=== PATIENT | male | born 1980 | race Caucasian/White ===

== ENCOUNTER 2018-05-12 23:02 | Observation (INO) ==
[2018-05-12] MEDS ORDERED: MORPHINE 4 MG/1 ML VIAL IV STA ×2 (23:24→23:57)
[2018-05-12] MEDS ORDERED: ASPIRIN 325 MG TABLET PO STA (23:24)
[2018-05-12] MEDS ORDERED: ONDANSETRON 4 MG/2 ML VIAL IV STA (23:24)
[2018-05-12] MEDS ORDERED: METOPROLOL TARTRATE 5 MG/5 ML VIAL IV STA (23:24)
[2018-05-12] MEDS ORDERED: ENOXAPARIN 100 MG/ML SYRINGE SUBCUT STA (23:24)
[2018-05-12 23:35] LABS: Basophils # 0.1 10*3/uL (0.0-0.2); Basophils % 1.1 % (0.0-0.8); Eosinophils # 0.2 10*3/uL (0.0-0.87); Hemoglobin 12.7 GM/DL (14.0-18.0); Immature Granulocytes % 0.3 %; Immature Granulocytes Absolute 0.02 #; Lymphocytes # 1.4 10*3/uL (1.4-4.0); Lymphocytes % 19.6 % (21.2-54.2); Mean Corpuscular HGB Conc 33.4 GM/DL (32-36); Mean Corpuscular Hemoglobin 31 PG (27-34); Mean Corpuscular Volume 93.6 FL (87-102); Monocytes # 0.6 10*3/uL (0.11-0.8); Monocytes % 8.3 % (1.7-12.7); Neutrophils % 67.7 % (38.7-73.9); Platelet Count 227 T/CUMM (130-400); Red Blood Count 4.06 MC/CUMM (3.8-5.5); Red Cell Distribution Width 15.8 % (9.3-17.3); White Blood Count 7.4 T/CUMM (4-12)
[2018-05-12 23:42] LABS: PT Patient Result 10.1 SECS
[2018-05-12 23:45] LABS: Alanine Aminotransferase 20 U/L (16-61); Albumin 3.8 G/DL (3.4-5.0); Alkaline Phosphatase 39 U/L (45-117); Aspartate Amino Transferase 22 U/L (0-37); Bilirubin,Total < 0.39 MG/DL (0.2-1.0); Blood Urea Nitrogen 11 MG/DL (7-18); Calcium 8.9 MG/DL (8.5-10.1); Glucose 89 MG/DL (74-106); Osmolality,Calculated 272.7 MOS/KG (273-304); Potassium 3.2 MMOL/L (3.5-5.1); Sodium 138 MMOL/L (136-145); Total Protein 7.2 G/DL (6.4-8.3)
[2018-05-12] MEDS: NITROGLYCERIN SL 0.4 MG TABLET SL PRN (23:53)
[2018-05-13] MEDS: NITROGLYCERIN SL 0.4 MG TABLET SL PRN ×4 (00:10→14:55)
[2018-05-13] MEDS ORDERED: MAGNESIUM SULF RIDER 2 GM in PREMIX 1 EACH IV PRN (01:19)
[2018-05-13] MEDS ORDERED: PROMETHAZINE 25 MG/1 ML VIAL IM PRN (01:19)
[2018-05-13] MEDS ORDERED: ONDANSETRON 4 MG/2 ML VIAL IV PRN (01:19)
[2018-05-13] MEDS ORDERED: MAGNESIUM SULF RIDER 4 GM in PREMIX 1 EACH IV PRN (01:19)
[2018-05-13 10:03] LABS: Risk Ratio 5.84
[2018-05-13] MEDS: NITROGLYCERIN 2% OINT 1 INCH/GM PACK TOP SCH ×3 (10:15→18:09)
[2018-05-13] MEDS: PANTOPRAZOLE 40 MG TABLET PO SCH (10:58)
[2018-05-13] MEDS: ASPIRIN EC 81 MG TABLET PO SCH (11:50)
[2018-05-13] MEDS: METOPROLOL TARTRATE 25 MG TABLET PO SCH ×2 (11:50→20:42)
[2018-05-13] MEDS: POTASSIUM CHLORIDE 20 MEQ TABLET PO PRN ×4 (12:01→18:10)
[2018-05-13] MEDS ORDERED: POTASSIUM CHLORIDE RIDER 10 MEQ in PREMIX 1 EACH IV PRN (14:41)
[2018-05-13 15:10] LABS: Barbiturates Screen,Urine Negative (Negative); Benzodiazepines Screen,Urine Negative (Negative); Cannabinoid Screen,Urine Positive (Negative); Opiate Screen,Urine Positive (Negative); Phencyclidine Screen,Urine Negative (Negative)
[2018-05-13] MEDS: NICOTINE 21 MG/24 HR PATCH TRANSDERM SCH (15:10)
[2018-05-13] MEDS: MORPHINE 4 MG/1 ML VIAL IV PRN ×2 (15:35→23:00)
[2018-05-13] MEDS: LOVASTATIN 20 MG TABLET PO SCH (18:09)
[2018-05-14 01:42] LABS: Calcium 8.4 MG/DL (8.5-10.1); Osmolality,Calculated 281.3 MOS/KG (273-304)
[2018-05-14 01:45] LABS: Basophils # 0.1 10*3/uL (0.0-0.2); Basophils % 1.6 % (0.0-0.8); Eosinophils # 0.3 10*3/uL (0.0-0.87); Hematocrit 38.6 VOL% (42.0-52.0); Hemoglobin 12.4 GM/DL (14.0-18.0); Immature Granulocytes % 0.2 %; Immature Granulocytes Absolute 0.01 #; Lymphocytes # 1.6 10*3/uL (1.4-4.0); Lymphocytes % 31.5 % (21.2-54.2); Mean Corpuscular HGB Conc 32.1 GM/DL (32-36); Mean Corpuscular Hemoglobin 31 PG (27-34); Mean Platelet Volume 11.2 FL (9.6-12.0); Monocytes # 0.5 10*3/uL (0.11-0.8); Monocytes % 8.9 % (1.7-12.7); Neutrophils # 2.7 10*3/uL (1.4-7.4); Neutrophils % 51.8 % (38.7-73.9); Platelet Count 228 T/CUMM (130-400); Red Blood Count 4.02 MC/CUMM (3.8-5.5); Red Cell Distribution Width 15.9 % (9.3-17.3); White Blood Count 5.1 T/CUMM (4-12)
[2018-05-14] MEDS: NITROGLYCERIN 2% OINT 1 INCH/GM PACK TOP SCH ×3 (06:56→13:44)
[2018-05-14] MEDS ORDERED: SODIUM CHLORIDE 0.45% 1,000 ML IV SCH (08:00)
[2018-05-14] MEDS: PANTOPRAZOLE 40 MG TABLET PO SCH (08:29)
[2018-05-14] MEDS: METOPROLOL TARTRATE 25 MG TABLET PO SCH (08:29)
[2018-05-14] MEDS: NICOTINE 21 MG/24 HR PATCH TRANSDERM SCH (08:30)
[2018-05-14] MEDS: ASPIRIN EC 81 MG TABLET PO SCH (08:30)
[2018-05-14] MEDS ORDERED: diphenhydrAMINE CAP 50 MG CAPSULE PO ONE (09:00)
[2018-05-14] MEDS ORDERED: DIAZEPAM 5 MG TABLET PO ONE (09:00)
[2018-05-14] MEDS ORDERED: ASPIRIN EC 81 MG TABLET PO SCH (09:00)
[2018-05-14] MEDS ORDERED: HEPARIN/NACL 0.9% 2 UNITS/ML 1,000 ML IV ONE (09:08)
[2018-05-14] MEDS ORDERED: LIDOCAINE 1%/EPI INJ 20 ML VIAL ONE (09:08)
[2018-05-14] MEDS ORDERED: MIDAZOLAM 2 MG/2 ML VIAL ONE ×2 (09:29→09:49)
[2018-05-14] MEDS ORDERED: fentaNYL 100 MCG/2 ML VIAL ONE (09:29)
[2018-05-14] MEDS ORDERED: HEPARIN/NACL 0.9% 2 UNITS/ML 500 ML IV ONE (09:46)
[2018-05-14] MEDS: MORPHINE 4 MG/1 ML VIAL IV PRN (13:49)
[2018-05-14 16:29] VITALS: BP 112/64
[2018-05-14] MEDS: LOVASTATIN 20 MG TABLET PO SCH (17:57)
== END 2018-05-14 18:20 | disposition home or self-care (01) ==
LOC: EDBD → EDUNIT# → N.EDINP 23:02 → N.ED 23:02 → N.TELEN 05-13 00:43
PROVIDERS: ADMIT Internal Medicine Interventional Cardiology; ATTEND Internal Medicine Interventional Cardiology
PROC: CLCCHCL (ICD-10-PCS; 2018-05-14 10:15)

== ENCOUNTER 2019-07-02 23:09 | Inpatient (IN) ==
[2019-07-03 02:09] LABS: Basophils # 0.1 10*3/uL (0.0-0.2); Basophils % 0.9 % (0.0-0.8); Eosinophils # 0.2 10*3/uL (0.0-0.87); Hemoglobin 13.3 GM/DL (14.0-18.0); Immature Granulocytes % 0.2 %; Immature Granulocytes Absolute 0.02 #; Lymphocytes # 2.6 10*3/uL (1.4-4.0); Lymphocytes % 28.4 % (21.2-54.2); Mean Corpuscular HGB Conc 32.4 GM/DL (32-36); Mean Corpuscular Volume 87.8 FL (87-102); Mean Platelet Volume 11.1 FL (9.6-12.0); Neutrophils % 63.5 % (38.7-73.9); Platelet Count 264 T/CUMM (130-400); Red Blood Count 4.67 MC/CUMM (3.8-5.5); Red Cell Distribution Width 15.4 % (9.3-17.3); White Blood Count 9.2 T/CUMM (4-12)
[2019-07-03] MEDS: MORPHINE 4 MG/1 ML VIAL IV PRN ×4 (02:12→20:11)
[2019-07-03 02:33] LABS: Calcium 8.4 MG/DL (8.5-10.1); Osmolality,Calculated 280.1 MOS/KG (273-304)
[2019-07-03] MEDS ORDERED: NICOTINE 21 MG/24 HR PATCH TRANSDERM PRN (03:24)
[2019-07-03] MEDS ORDERED: ONDANSETRON 4 MG/2 ML VIAL IV PRN (03:24)
[2019-07-03 06:14] LABS: Risk Ratio 5.67; Thyroid Stimulating Hormone 0.679 uIU/ml (0.358-3.74)
[2019-07-03] MEDS ORDERED: METOPROLOL TARTRATE 25 MG TABLET PO SCH (09:00)
[2019-07-03] MEDS: ASPIRIN EC 81 MG TABLET PO SCH (09:32)
[2019-07-03] MEDS: TICAGRELOR 90 MG TABLET PO SCH ×2 (09:32→20:13)
[2019-07-03] MEDS: PANTOPRAZOLE 40 MG TABLET PO SCH (09:32)
[2019-07-03] MEDS: ENOXAPARIN 40 MG/0.4 ML SYRINGE SUBCUT SCH (09:32)
[2019-07-03] MEDS: GABAPENTIN 400 MG CAPSULE PO SCH ×3 (09:32→20:13)
[2019-07-03] MEDS: METOPROLOL TARTRATE 50 MG TABLET PO SCH ×2 (09:32→20:13)
[2019-07-03] MEDS ORDERED: LORazepam 2 MG/1 ML VIAL IV PRN (12:16)
[2019-07-03] MEDS ORDERED: ALUM/MAG/SIMETH/LIDO VISC 1:1 30 ML BOTTLE PO ONE (12:17)
[2019-07-03] MEDS: THIAMINE 100 MG TABLET PO SCH (12:50)
[2019-07-03] MEDS: FOLIC ACID 1 MG TABLET PO SCH (12:50)
[2019-07-03] MEDS: MULTIVITAMIN (CENTRUM) TABLET PO SCH (12:50)
[2019-07-03 14:48] LABS: Apearance,Urine CLEAR (Clear); Bilirubin,Urine Negative (Negative); Blood, Urine Negative (Negative); Glucose,Urine (UA) Negative (Negative); Ketones,Urine Negative (Negative); Mucus,Urine Occasional /LPF (Occasional); Nitrite,Urine Negative (Negative); Protein,Urine Negative; RBC,Urine <1 /HPF (0-4); Squamous Epithelial Cell,Urine Occasional /HPF (0-10); Urine Color Yellow (Yellow); Urine Specific Gravity 1.014 (1.001-1.035); WBC,Urine 1 /HPF (0-6)
[2019-07-03] MEDS: POTASSIUM CHLORIDE 20 MEQ TABLET PO PRN ×4 (15:31→21:28)
[2019-07-03] MEDS ORDERED: SIMVASTATIN 10 MG TABLET PO SCH (17:00)
[2019-07-03] MEDS: oxyCODONE/ACETAMINOPHEN 5-325 MG TABLET PO SCH (23:28)
[2019-07-04] MEDS: MORPHINE 4 MG/1 ML VIAL IV PRN ×2 (01:43→05:43)
[2019-07-04] MEDS: MULTIVITAMIN (CENTRUM) TABLET PO SCH (08:24)
[2019-07-04] MEDS: TICAGRELOR 90 MG TABLET PO SCH (08:24)
[2019-07-04] MEDS: ASPIRIN EC 81 MG TABLET PO SCH (08:24)
[2019-07-04] MEDS: FOLIC ACID 1 MG TABLET PO SCH (08:24)
[2019-07-04] MEDS: GABAPENTIN 400 MG CAPSULE PO SCH (08:24)
[2019-07-04] MEDS: oxyCODONE/ACETAMINOPHEN 5-325 MG TABLET PO SCH ×2 (08:25→13:21)
[2019-07-04] MEDS: THIAMINE 100 MG TABLET PO SCH (08:26)
[2019-07-04] MEDS: ENOXAPARIN 40 MG/0.4 ML SYRINGE SUBCUT SCH (08:26)
[2019-07-04] MEDS: METOPROLOL TARTRATE 50 MG TABLET PO SCH (08:26)
[2019-07-04] MEDS: PANTOPRAZOLE 40 MG TABLET PO SCH (08:26)
[2019-07-04] MEDS ORDERED: traMADol 50 MG TABLET PO SCH (09:14)
[2019-07-04 13:00] VITALS: BP 139/89
[2019-07-04] MEDS ORDERED: GABAPENTIN 600 MG TABLET PO SCH (15:00)
[2019-07-04] MEDS ORDERED: SIMVASTATIN 10 MG TABLET PO SCH (17:00)
== END 2019-07-04 13:20 | disposition home or self-care (01) | DRG 313 ==
LOC: N.TELEN 23:13 → SUATTDRO 07-03 00:44
PROVIDERS: ADMIT Internal Medicine; ATTEND Internal Medicine

== ENCOUNTER 2021-06-25 13:46 | Observation (INO) ==
[2021-06-25] MEDS ORDERED: DEXTROSE 50% 25 GM/50 ML VIAL IV PRN (15:39)
[2021-06-25] MEDS ORDERED: ACETAMINOPHEN 325 MG TABLET PO PRN (15:39)
[2021-06-25] MEDS ORDERED: ONDANSETRON 4 MG/2 ML VIAL IV PRN (15:39)
[2021-06-25] MEDS ORDERED: NICOTINE 21 MG/24 HR PATCH TRANSDERM PRN (15:39)
[2021-06-25] MEDS ORDERED: CALCIUM CARBONATE CHEW 500 MG TABLET PO PRN (15:39)
[2021-06-25] MEDS ORDERED: DOCUSATE SODIUM 100 MG CAPSULE PO PRN (15:39)
[2021-06-25] MEDS ORDERED: hydrALAZINE 20 MG/1 ML VIAL IV PRN (15:39)
[2021-06-25] MEDS ORDERED: GLUCAGON 1 MG VIAL IM PRN (15:39)
[2021-06-25] MEDS ORDERED: NITROGLYCERIN SL 0.4 MG TABLET SL PRN (15:46)
[2021-06-25] MEDS: PANTOPRAZOLE 40 MG TABLET PO SCH (16:10)
[2021-06-25] MEDS: MORPHINE 2 MG/1 ML SYRINGE IV PRN ×2 (16:13→21:21)
[2021-06-25] MEDS: THIAMINE 100 MG TABLET PO SCH (17:21)
[2021-06-25] MEDS: LEVOFLOXACIN INJ 750 MG/150 ML PREMIX IV SCH (17:22)
[2021-06-25 17:51] LABS: Barbiturates Screen,Urine Negative (Negative); Benzodiazepines Screen,Urine Negative (Negative); Cannabinoid Screen,Urine Negative (Negative); Opiate Screen,Urine Positive (Negative); Phencyclidine Screen,Urine Negative (Negative)
[2021-06-25 17:55] LABS: Bilirubin,Urine Negative (Negative); Blood, Urine Negative (Negative); Glucose,Urine (UA) Negative (Negative); Ketones,Urine Negative (Negative); Mucus,Urine Occasional /LPF (Occasional); Nitrite,Urine Negative (Negative); Protein,Urine Negative; RBC,Urine 1 /HPF (0-4); Urine Appearance CLEAR (Clear); Urine Color Straw (Yellow); Urine Specific Gravity 1.006 (1.001-1.035); Urine Urobilinogen < 2.0 EU/DL (0.2-1.0)
[2021-06-25] MEDS: ALBUTEROL/IPRATROPIUM 3 ML NEB RESP TX SCH (19:52)
[2021-06-25] MEDS ORDERED: ENOXAPARIN 40 MG/0.4 ML SYRINGE SUBCUT SCH (21:00)
[2021-06-25] MEDS ORDERED: ATORVASTATIN 20 MG TABLET PO SCH (21:00)
[2021-06-25] MEDS ORDERED: AMITRIPTYLINE 100 MG TABLET PO SCH (21:00)
[2021-06-25] MEDS ORDERED: chlordiazePOXIDE 10 MG CAPSULE PO SCH (21:00)
[2021-06-25] MEDS: chlordiazePOXIDE 25 MG CAPSULE PO SCH (21:21)
[2021-06-25] MEDS: FOLIC ACID 1 MG TABLET PO SCH (21:21)
[2021-06-25] MEDS: NORTRIPTYLINE 25 MG CAPSULE PO SCH (21:21)
[2021-06-25] MEDS: GABAPENTIN 600 MG TABLET PO SCH (21:21)
[2021-06-26] MEDS: ALBUTEROL/IPRATROPIUM 3 ML NEB RESP TX SCH ×4 (01:20→20:48)
[2021-06-26] MEDS: MORPHINE 2 MG/1 ML SYRINGE IV PRN ×4 (02:36→23:05)
[2021-06-26 05:34] LABS: Basophils # 0.1 10*3/uL (0.0-0.2); Basophils % 0.7 % (0.0-0.8); Eosinophils # 0.3 10*3/uL (0.0-0.87); Eosinophils % 2.9 % (0.00-10.9); Hematocrit 41.5 VOL% (42.0-52.0); Hemoglobin 12.6 GM/DL (14.0-18.0); Immature Granulocytes % 0.2 %; Immature Granulocytes Absolute 0.02 #; Lymphocytes # 1.4 10*3/uL (1.4-4.0); Lymphocytes % 16.7 % (21.2-54.2); Mean Corpuscular HGB Conc 30.4 GM/DL (32-36); Mean Corpuscular Volume 93.7 FL (87-102); Mean Platelet Volume 10.6 FL (9.6-12.0); Monocytes % 7.5 % (1.7-12.7); Platelet Count 203 T/CUMM (130-400); Red Blood Count 4.43 MC/CUMM (3.8-5.5); Red Cell Distribution Width 16.5 % (9.3-17.3); White Blood Count 8.6 T/CUMM (4-12)
[2021-06-26 06:11] LABS: Alanine Aminotransferase 18 U/L (16-61); Albumin 3.3 G/DL (3.4-5.0); Alkaline Phosphatase 46 U/L (45-117); Aspartate Amino Transferase 20 U/L (0-37); Bilirubin,Total < 0.39 MG/DL (0.20-1.00); Blood Urea Nitrogen 9 MG/DL (7-18); Calcium 8.2 MG/DL (8.5-10.1); Carbon Dioxide 27 MMOL/L (21-32); Glucose 147 MG/DL (74-106); HDL Cholesterol 29 MG/DL (40-60); Osmolality,Calculated 284.1 MOS/KG (273-304); Potassium 3.7 MMOL/L (3.5-5.1); Risk Ratio 5.62; Sodium 142 MMOL/L (136-145); Thyroid Stimulating Hormone 0.386 uIU/ml (0.358-3.74); Triglycerides 356 MG/DL (2-150); VLDL Cholesterol 71.2 MG/DL
[2021-06-26 06:17] LABS: Estimated Glom Filtration Rate 154 ML/MIN
[2021-06-26] MEDS ORDERED: METOPROLOL TARTRATE 25 MG TABLET PO SCH (09:00)
[2021-06-26] MEDS ORDERED: FUROSEMIDE 40 MG/4 ML VIAL IV SCH (09:00)
[2021-06-26] MEDS: ATORVASTATIN 80 MG TABLET PO SCH (09:42)
[2021-06-26] MEDS: PANTOPRAZOLE 40 MG TABLET PO SCH (09:42)
[2021-06-26] MEDS: METOPROLOL SUCCINATE XL 100 MG TABLET PO SCH (09:42)
[2021-06-26] MEDS: THIAMINE 100 MG TABLET PO SCH (09:42)
[2021-06-26] MEDS: amLODIPine 5 MG TABLET PO SCH (09:42)
[2021-06-26] MEDS: ASPIRIN EC 81 MG TABLET PO SCH (09:42)
[2021-06-26] MEDS: GABAPENTIN 600 MG TABLET PO SCH ×2 (09:42→21:26)
[2021-06-26] MEDS: chlordiazePOXIDE 25 MG CAPSULE PO SCH ×3 (09:42→21:26)
[2021-06-26] MEDS: NITROGLYCERIN 2% OINT 1 INCH/GM PACK TOP SCH ×3 (09:50→17:29)
[2021-06-26] MEDS ORDERED: SODIUM CHLORIDE 0.9% 1,000 ML IV SCH (10:00)
[2021-06-26] MEDS ORDERED: DIAZEPAM 5 MG TABLET PO ONE (14:39)
[2021-06-26] MEDS ORDERED: diphenhydrAMINE CAP 50 MG CAPSULE PO ONE (14:39)
[2021-06-26] MEDS ORDERED: diphenhydrAMINE CAP 25 MG CAPSULE ONE (14:42)
[2021-06-26] MEDS ORDERED: MIDAZOLAM 2 MG/2 ML VIAL ONE ×2 (14:58→15:27)
[2021-06-26] MEDS ORDERED: LIDOCAINE 1% 20 ML VIAL ONE (14:58)
[2021-06-26] MEDS ORDERED: fentaNYL 100 MCG/2 ML VIAL ONE ×2 (14:58→16:10)
[2021-06-26] MEDS ORDERED: HEPARIN 5,000 UNIT/1 ML VIAL ONE (15:45)
[2021-06-26] MEDS: LEVOFLOXACIN INJ 750 MG/150 ML PREMIX IV SCH (16:55)
[2021-06-26] MEDS: NORTRIPTYLINE 25 MG CAPSULE PO SCH (21:25)
[2021-06-26] MEDS: FOLIC ACID 1 MG TABLET PO SCH (21:26)
[2021-06-27] MEDS: ALBUTEROL/IPRATROPIUM 3 ML NEB RESP TX SCH ×3 (02:30→12:28)
[2021-06-27] MEDS: NITROGLYCERIN 2% OINT 1 INCH/GM PACK TOP SCH ×2 (03:38→05:18)
[2021-06-27 06:16] LABS: Basophils % 0.4 % (0.0-0.8); Eosinophils # 0.2 10*3/uL (0.0-0.87); Eosinophils % 2.2 % (0.00-10.9); Hematocrit 42.9 VOL% (42.0-52.0); Immature Granulocytes % 0.2 %; Immature Granulocytes Absolute 0.02 #; Lymphocytes # 1.2 10*3/uL (1.4-4.0); Mean Corpuscular HGB Conc 30.3 GM/DL (32-36); Mean Corpuscular Volume 91.9 FL (87-102); Mean Platelet Volume 10.6 FL (9.6-12.0); Monocytes % 8.5 % (1.7-12.7); Neutrophils % 75.7 % (38.7-73.9); Platelet Count 198 T/CUMM (130-400); Red Blood Count 4.67 MC/CUMM (3.8-5.5); Red Cell Distribution Width 16.7 % (9.3-17.3); White Blood Count 9.4 T/CUMM (4-12)
[2021-06-27] MEDS: chlordiazePOXIDE 25 MG CAPSULE PO SCH (09:51)
[2021-06-27] MEDS: METOPROLOL SUCCINATE XL 100 MG TABLET PO SCH (09:51)
[2021-06-27] MEDS: ATORVASTATIN 80 MG TABLET PO SCH (09:51)
[2021-06-27] MEDS: amLODIPine 5 MG TABLET PO SCH (09:51)
[2021-06-27] MEDS: THIAMINE 100 MG TABLET PO SCH (09:51)
[2021-06-27] MEDS: MORPHINE 2 MG/1 ML SYRINGE IV PRN (09:52)
[2021-06-27] MEDS: GABAPENTIN 600 MG TABLET PO SCH (09:52)
[2021-06-27] MEDS: ASPIRIN EC 81 MG TABLET PO SCH (09:52)
[2021-06-27] MEDS: PANTOPRAZOLE 40 MG TABLET PO SCH (09:52)
[2021-06-27 12:02] VITALS: BP 125/76
[2021-06-28 12:51] LABS: Cotinine 154 ng/mL (<3.0); Nicotine < 3.0 ng/mL (<3.0)
== END 2021-06-27 14:17 | disposition home or self-care (01) ==
LOC: N.TELES → SUATTDRO 15:24
PROVIDERS: ADMIT Internal Medicine; ATTEND Hospitalist
PROC: CLCCHCL (ICD-10-PCS; 2021-06-26 15:15)